=== PATIENT | female | born 1980 | race African-American/Black ===

== ENCOUNTER 2018-02-22 06:14 | Emergency (ER) | payer MEDICAID ==
[~2018-02-22] VITALS: Ht 162.6 cm; Wt 67.4 kg
[2018-02-22] MEDS ORDERED: KETOROLAC 60 MG/2 ML IM ONE (07:00)
[2018-02-22] MEDS ORDERED: ONDANSETRON ODT 4 MG PO ONE (07:00)
[2018-02-22] MEDS ORDERED: KETOROLAC 30 MG/1 ML ONE (07:05)
[2018-02-22] MEDS ORDERED: ONDANSETRON ODT 4 MG ONE (07:05)
[2018-02-22 08:08] VITALS: BP 114/84
== END 2018-02-22 08:12 | disposition home or self-care (01) ==
LOC: ED 08:00
DX: R07.2 Precordial pain (principal); R06.00 Dyspnea, unspecified; Z90.710 Acquired absence of both cervix and uterus
CPT/HCPCS: 71045; 93005; 96372; 99284; J1885; Q0162

== ENCOUNTER 2018-04-13 10:55 | Emergency (ER) | payer MEDICAID ==
[~2018-04-13] VITALS: Ht 162.6 cm; Wt 68.2 kg
[2018-04-13] MEDS ORDERED: ONDANSETRON 2MG/ML, 2ML IVPush ONE (11:30)
[2018-04-13] MEDS ORDERED: ONDANSETRON 2MG/ML, 2ML ONE (11:31)
[2018-04-13] MEDS ORDERED: MORPHINE SULFATE 4 MG/ML, 1ML ONE ×2 (11:32→12:38)
[2018-04-13 11:52] LABS: BASOPHILS # (AUTO) 0.06 x10^3/uL (0-0.1); BASOPHILS % (AUTO) 1 % (0-1); EOSINOPHILS # (AUTO) 0.09 x10^3/uL (0-0.4); EOSINOPHILS % (AUTO) 1 % (1-7); LYMPHOCYTES # (AUTO) 3.06 x10^3/uL (1-3.4); LYMPHOCYTES % (AUTO) 47 % (22-44); MD NO; MEAN CORPUSCULAR HEMOGLOBIN 31.1 pg (27.0-34.8); MEAN CORPUSCULAR HGB CONC 33.7 g/dL (32.4-35.8); MEAN CORPUSCULAR VOLUME 92.3 fL (80-100); MONOCYTES # (AUTO) 0.44 x10^3/uL (0.2-0.8); MONOCYTES % (AUTO) 7 % (2-9); NEUTROPHILS # (AUTO) 2.92 x10^3/uL (1.8-6.8); NEUTROPHILS % (AUTO) 45 % (42-75); PLATELET COUNT 341 x10^3/uL (130-400); RED BLOOD COUNT 4.44 x10^6/uL (3.82-5.3); RED CELL DISTRIBUTION WIDTH 13.8 % (9.6-15.2)
[2018-04-13] MEDS: MORPHINE SULFATE 4 MG/ML, 1ML IVPush PRN ×2 (11:52→12:40)
[2018-04-13 11:56] LABS: MICROSCOPIC AUTO
[2018-04-13 11:59] LABS: CULTURE INDICATED? NO
[2018-04-13 12:02] LABS: CHLORIDE 106 mmol/L (98-107)
[2018-04-13 12:03] LABS: ALBUMIN 3.9 g/dL (3.4-5.0); ANION GAP 8 mmol/L (5-15); CALCIUM 8.9 mg/dL (8.5-10.1); CREATININE 0.62 mg/dL (0.55-1.02)
[2018-04-13 13:47] VITALS: BP 121/64
== END 2018-04-13 13:49 | disposition home or self-care (01) ==
LOC: ED 11:24
DX: N83.292 Other ovarian cyst, left side (principal); R11.2 Nausea with vomiting, unspecified; Z98.51 Tubal ligation status
CPT/HCPCS: 36415; 76830; 80048; 81001; 82040; 85025; 96374; 96375; 96376; 99284; J2405